=== PATIENT | female | born 1950 | race Caucasian/White ===

== ENCOUNTER 2021-05-31 17:42 | Emergency (ER) | payer MEDICARE, OTHER ==
[2021-05-31 21:15] LABS: HEMOGLOBIN 14.1 gm/dl (12.3-15.3); RED BLOOD COUNT 5.03 M/UL (4.00-5.10); WHITE BLOOD COUNT 11.6 K/UL (4.5-11.0)
[2021-05-31 21:29] LABS: BUN/CREATININE RATIO 11 (0-10)
== END 2021-06-01 00:08 | disposition home or self-care (01) ==
LOC: ER1 17:42
PROVIDERS: Physician Assistant
DX: R00.2 Palpitations (principal); M25.512 Pain in left shoulder; I10 Essential (primary) hypertension; Z90.710 Acquired absence of both cervix and uterus; Z88.5 Allergy status to narcotic agent; Z88.8 Allergy status to other drugs, medicaments and biological substances
CPT/HCPCS: 71045; 80053; 82550; 82553; 83735; 83874; 83880; 84439; 84443; 84484; 85025; 93005; 99285